=== PATIENT | female | born 1970 | race Two or more races ===

== ENCOUNTER 2016-10-04 12:19 | Emergency (ER) | payer BC ==
[~2016-10-04] VITALS: Ht 149.9 cm; Wt 69.5 kg
[2016-10-04] MEDS ORDERED: HYDR25TA PO ×2 (12:29→12:30)
[2016-10-04] MEDS ORDERED: ALBU2.5V2 NEB (12:29)
[2016-10-04] MEDS ORDERED: HYDROCODONE/ACETAMINOPHEN 5-325 MG TABLET PO ONE (13:30)
[2016-10-04 14:40] VITALS: BP 148/88
== END 2016-10-04 15:03 | disposition home or self-care (01) ==
LOC: EMS 12:24
DX: R51 Headache (principal); I10 Essential (primary) hypertension; J45.909 Unspecified asthma, uncomplicated
CPT/HCPCS: 70450; 99284